=== PATIENT | male | born 1960 | race Caucasian/White ===

== ENCOUNTER 2017-04-25 18:38 | Emergency (ER) | payer OTHER ==
[~2017-04-25] VITALS: Ht 167.6 cm; Wt 99.8 kg
[~2017-04-25 18:38] MED LIST: EPIPEN 2-PAK1 MG/ML IM
--- NOTE | 2017-04-25 19:31 | ED UPPER/LOWER EXTREMITY COMPL ---
History of Present Illness General Chief Complaint: Lower Extremity Problems Stated Complaint: RIGHT SIDED GROIN PAIN, X 3 DAYS Source: patient, family, old records Exam Limitations: no limitations Vital Signs & Intake/Output Vital Signs & Intake/Output Vital Signs Date Time Temp Pulse Resp B/P B/P Pulse O2 O2 Flow FiO2 Mean Ox Delivery Rate 04/25 1841 97.3 77 18 162/74 100 Room Air Allergies Coded Allergies: venom-honey bee (ANAPHYLAXIS 04/25/17) Reconcile Medications Aspirin (Ecotrin*) 81 MG TABLET.DR 1 TAB PO DAILY HEART/BLOOD (Reported) Cyclobenzaprine HCl 10 MG TABLET 1 TAB PO Q8P PAIN OR SPASM Lisinopril 20 MG TABLET 1 TAB PO DAILY BP (Reported) Omeprazole 20 MG TABLET.DR 1 TAB PO DAILY GI (Reported) Simvastatin (Zocor*) 40 MG TABLET 1 TAB PO QPM CHOLESTEROL (Reported) Triage Note: 56 Y/O MALE C/O R SIDED GROIN PAIN X 2-3 DAYS. DENIES NOTING LUMP OR MASS. STATES PAIN IS "TOLERABLE" AT REST, MADE WORSE WITH WALKING. DENIES URINARY SYMPTOMS. DENIES N/V/D. AFEBRILE. Triage Nurses Notes Reviewed? yes HPI: Patient states that for the past 3 days he has a pulling sensation in his right groin. The pain is only present when he ambulates and there is no pain when he is at rest. There is no weakness or numbness. There has been no trauma. When he has the pain he rates it as a 6 out of 10. The pain is aggravated as noted above. The pain radiates from his hip and towards his groin. Patient denies any fevers or chills. Past History Travel History Traveled to [place] past 21 day No Medical History Any Pertinent Medical History? 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 No Review of Systems Review of Systems Constitutional: Reports: no symptoms. Respiratory: Reports: no symptoms. Cardiovascular: Reports: no symptoms. Gastrointestinal/Abdominal: Reports: no symptoms. Musculoskeletal: Reports: see HPI, joint pain. Neurological/Psychological: Reports: no symptoms. Immunological: Reports: no symptoms. Physical Exam Physical Exam General Appearance: well developed/nourished, alert, awake Eyes: Bilateral: PERRL, EOMI. Ears, Nose, Throat: normal pharynx, normal ENT inspection Neck: normal inspection, supple, full range of motion Cardiovascular/Respiratory: normal breath sounds, normal peripheral pulses, regular rate/rhythm, no respiratory distress Hip Right: normal range of motion, normal inspection, NO PAIN WITH PASSIVE ROM Neurologic/Tendon: normal sensation, normal motor functions, normal tendon functions Progress Differential Diagnosis: fracture, sprain, tendon injury Plan of Care: Orders Procedure Date/time Status XRY-HIP 2-3 VIEWS, RIGHT 04/25 1930 Active Diagnostic Imaging: Viewed by Me: Radiology Read. Discussed w/RAD: Radiology Read. Radiology Impression: PATIENT: JIM FAY PRESENT AGE: 56 PATIENT ACCOUNT NO: [id number] : 60 LOCATION: [facility], [place] ORDERING PHYSICIAN: ANNABELLA GONZALEZ MD SERVICE DATE: 04/25/17 EXAM TYPE: RAD - XRY-HIP 2-3 VIEWS, RIGHT EXAMINATION: XR HIP, RIGHT CLINICAL INFORMATION: Pain. No trauma COMPARISON: None TECHNIQUE: Two views of the right hip. FINDINGS : No fracture or dislocation. The femoral head is well-seated within its acetabulum. The joint space is maintained. No significant degenerative changes. The right hemipelvis is intact. The soft tissues are unremarkable. IMPRESSION: Unremarkable right hip radiographs. DICTATED BY: EDWIN MEEKS MD DATE/TIME DICTATED:04/25/171951 [facility] CLINICIAN:ARIADNE DATE/TIME TRANSCRIBED:1951 CONFIDENTIAL, DO NOT COPY WITHOUT APPROPRIATE AUTHORIZATION. < Electronically signed in Other Vendor System> SIGNED BY: EDWIN MEEKS MD 04/25/171955 Departure Departure Disposition: HOME OR SELF CARE Condition: Stable Clinical Impression Primary Impression: Right hip pain Referrals: JESSE CARLTON,BRIGID DELEON MD,DIANA Yates (PCP/Family) Additional Instructions: FOLLOW UP WITH DR. GLEASON TAKE FLEXERIL NEEDED FOR PAIN, IT IS SEDATING SO DO NOT DRIVE AFTER TAKING IT. RETURN FOR ANY CONCERNS Departure Forms: Customer Survey General Discharge Information Prescriptions: Current Visit Scripts Cyclobenzaprine HCl 1 TAB PO Q8P #20 TAB
[2017-04-25] MEDS ORDERED: ASPIRIN EC81 M1 PO (19:50)
[2017-04-25] MEDS ORDERED: OMEPRAZOLE20 M3 PO (19:50)
[2017-04-25] MEDS ORDERED: LISINOPRIL20 M1 PO (19:50)
[2017-04-25] MEDS ORDERED: ZOCOR40 M1 PO (19:50)
--- NOTE | 2017-04-25 19:56 | RADIOLOGY REPORT ---
EXAMINATION: XR HIP, RIGHT CLINICAL INFORMATION: Pain. No trauma COMPARISON: None TECHNIQUE: Two views of the right hip. FINDINGS: No fracture or dislocation. The femoral head is well-seated within its acetabulum. The joint space is maintained. No significant degenerative changes. The right hemipelvis is intact. The soft tissues are unremarkable. IMPRESSION: Unremarkable right hip radiographs.
[2017-04-25] MEDS ORDERED: CYCLOBENZAPRINE10 M1 PO (20:17)
[2017-04-25 20:21] VITALS: BP 159/70
== END 2017-04-25 20:22 ==
LOC: ERH 18:38
DX: M25.551 Pain in right hip (principal)
CPT/HCPCS: 73502-RT

== ENCOUNTER 2017-06-30 04:41 | Emergency (ER) | payer OTHER ==
[~2017-06-30] VITALS: Ht 167.6 cm; Wt 97.5 kg
[~2017-06-30 04:41] MED LIST changes: +ASPIRIN EC81 M1 PO; +CYCLOBENZAPRINE10 M1 PO; +LISINOPRIL20 M1 PO; +OMEPRAZOLE20 M3 PO; +ZOCOR40 M1 PO
[2017-06-30 04:46] VITALS: BP 157/90
--- NOTE | 2017-06-30 04:54 | ED GENERAL ADULT ---
History of Present Illness General Chief Complaint: Low Back Pain/Injury Stated Complaint: LOWER BACK INJURY 2DAYS AGO PER PT Source: patient Exam Limitations: no limitations Vital Signs & Intake/Output Vital Signs & Intake/Output Vital Signs Date Time Temp Pulse Resp B/P B/P Pulse O2 O2 Flow FiO2 Mean Ox Delivery Rate 06/30 0449 98 Room Air 06/30 0446 96.4 78 18 157/90 97 Room Air Allergies Coded Allergies: venom-honey bee (ANAPHYLAXIS 04/25/17) Reconcile Medications Aspirin (Ecotrin*) 81 MG TABLET.DR 1 TAB PO DAILY HEART/BLOOD (Reported) Cyclobenzaprine HCl 10 MG TABLET 1 TAB PO TID PRN PAIN Cyclobenzaprine HCl 10 MG TABLET 1 TAB PO Q8P PAIN OR SPASM Ibuprofen 600 MG TABLET 1 TAB PO TID PRN PAIN with food Lisinopril 20 MG TABLET 1 TAB PO DAILY BP (Reported) Omeprazole 20 MG TABLET.DR 1 TAB PO DAILY GI (Reported) Prednisone 20 MG TABLET 2 TAB PO DAILY RADICULOPATHY Simvastatin (Zocor*) 40 MG TABLET 1 TAB PO QPM CHOLESTEROL (Reported) Triage Note: PT FROM HOME C/O LOWER BACK RADIATING DOWN RIGHT LEG. PT STATES MOVING OR STANDING HELPS. PT STATES THAT ON SATURDAY MORNING PT AWOKE AND HAD THE LOWER BACK PAIN RADIATING FROM HIS RIGHT BUTTOCK DOWN HIS RIGHT LEG. PT DENIES ANY INJURY OR TRAUMA. PT STANDING IN TRIAGE. PT TO 3 AWAITING PROVIDER EVAL. Triage Nurses Notes Reviewed? yes Onset: Abrupt Duration: day(s): Timing: recent history HPI: 06/30/17 56-year-old male presents to the emergency department complaining of low back pain. He says that he's had pain for several days. He saw a chiropractor who manipulated it and the pain is subsequently worse. The pain radiates down his right leg. There is no bowel or bladder dysfunction. There was no trauma. There is no fever. The onset of the symptoms was abrupt. The duration was approximately over the last 4 days. The severity is significant; as his symptoms required him to come to the emergency department for care. Past History Travel History Traveled to [place] past 21 day No Medical History Any Pertinent Medical History? 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 No Review of Systems Review of Systems Constitutional: Reports: no symptoms. EENTM: Reports: no symptoms. Respiratory: Reports: no symptoms. Cardiovascular: Reports: no symptoms. GI: Reports: no symptoms. Genitourinary: Reports: no symptoms. Musculoskeletal: Reports: back pain. Skin: Reports: no symptoms. Neurological/Psychological: Denies: numbness, paresthesia, weakness. Hematologic/Endocrine: Reports: no symptoms. Immunologic/Allergic: Reports: no symptoms. All Other Systems: Reviewed and Negative Physical Exam Physical Exam General Appearance: well developed/nourished, alert, awake, anxious, mild distress Head: atraumatic, normal appearance Eyes: Bilateral: normal appearance, PERRL, EOMI. Ears, Nose, Throat: normal pharynx, normal ENT inspection Neck: normal inspection, supple, full range of motion Respiratory: normal breath sounds, chest non-tender, no respiratory distress Cardiovascular: regular rate/rhythm Peripheral Pulses: 4+ radial (R), 4+ radial (L) Gastrointestinal: non-tender Back: decreased range of motion Extremities: normal inspection Neurologic/Psych: no motor/sensory deficits, awake, alert, oriented x 3 Skin: intact, normal color, warm/dry Comments: Physical exam reveals tenderness over the right lower paralumbar spine. Straight leg raising test is positive on the right leg. There was no lower extremity weakness. No objective sensory deficits to the lower extremities. He 's had no fever. Core Measures ACS in differential dx? No CVA/TIA Diagnosis: No Severe Sepsis Present: No Septic Shock Present: No Progress Differential Diagnoses I considered the following diagnoses in my evaluation of the patient: [Epidural abscess, disc herniation, lumbar strain, compression fracture, transverse myelitis,] Plan of Care: Current Medications Sig/Anitha Start time Last Medication Dose Stop Time Status Admin Prednisone 60 MG DAILY 06/30 1000 AC 06/30 0525 Initial ED EKG: none Departure Departure Disposition: STILL A PATIENT Condition: Stable Clinical Impression Primary Impression: Back pain Referrals: PANCHO CARLTON,DIANA Yates (PCP/Family) Departure Forms: Customer Survey General Discharge Information Prescriptions: Current Visit Scripts Prednisone 2 TAB PO DAILY #10 TAB Cyclobenzaprine HCl 1 TAB PO TID PRN PAIN #30 TAB Ibuprofen 1 TAB PO TID PRN PAIN #20 TAB with food Comments The patient was treated with Toradol IM. By mouth Flexeril, by mouth prednisone. He was instructed to follow-up with his doctor on Saturday. And to discuss getting an MRI should his pain continue. Critical Care Note Critical Care Note Critical Care Time: non-applicable
[2017-06-30] MEDS ORDERED: PREDNISONE20 M1 PO (05:42)
[2017-06-30] MEDS ORDERED: IBUPROFEN600 M1 PO (05:42)
[2017-06-30] MEDS ORDERED: CYCLOBENZAPRINE10 M1 PO (05:42)
== END 2017-06-30 05:48 ==
LOC: ERH 04:41
DX: M54.5 Low back pain (principal)
CPT/HCPCS: 96372; J1885